=== PATIENT | male | born 1960 | race Caucasian/White ===

== ENCOUNTER 2020-07-23 15:00 | Emergency (ER) | payer OTHER, MEDICARE ==
[~2020-07-23] VITALS: Ht 182.9 cm; Wt 158.8 kg
[~2020-07-23 15:00] MED LIST: HYDACE5 PO; IBUP800 PO; META800 PO; NAPR550 PO; OXYACE5T PO; PROM25 PO
[2020-07-23 15:20] LABS: BASOPHILS ABSOLUTE AUTO 0.06 K/mm3 (0.00-0.23); BASOPHILS PERCENT AUTO 0 % (0-2); EOSINOPHILS ABSOLUTE AUTO 0.05 K/mm3 (0.00-0.68); EOSINOPHILS PERCENT AUTO 0 % (0-6); Hematocrit 41.1 % (37.0-53.0); Hemoglobin 12.7 g/dL (13.5-17.5); IMMATURE GRAN ABSOLUTE AUTO 0.15 K/mm3 (0.00-0.10); IMMATURE GRAN PERCENT AUTO 1 % (0-1); LYMPHOCYTES ABSOLUTE AUTO 2.47 K/mm3 (0.84-5.20); LYMPHOCYTES PERCENT AUTO 10 % (21-46); MONOCYTES ABSOLUTE AUTO 1.73 K/mm3 (0.16-1.47); MONOCYTES PERCENT AUTO 7 % (4-13); Mean Corpuscular HGB 29.3 pg (26.0-34.0); Mean Corpuscular HGB Conc 30.9 g/dL (31.5-36.5); Mean Corpuscular Volume 95 fL (80-100); NEUTROPHILS ABSOLUTE AUTO 21.35 K/mm3 (1.96-9.15); NEUTROPHILS PERCENT AUTO 83 % (41-73); Platelet Count 331 K/mm3 (150-400); RDW Coefficient Variation 13.3 % (11.7-14.2); RDW Standard Deviation 47.2 fL (35.1-46.3); Red Blood Cell Count 4.33 M/mm3 (4.30-5.90); White Blood Cell Count 25.81 K/mm3 (4.00-11.30)
[2020-07-23 15:45] LABS: Alanine Aminotransfer (ALT/SGP 336 U/L (12-78); Albumin, Blood 2.7 g/dL (3.4-5.0); Albumin/Globulin Ratio 0.8 (0.8-1.8); Alk Phos 93 U/L (50-136); Anion Gap 5 mmol/L (6-16); Aspartate Aminotrans (AST/SGOT 406 U/L (12-37); Bilirubin, Total 0.5 mg/dL (0.1-1.0); Blood Urea Nitrogen 18 mg/dL (8-24); Bun/Creatinine Ratio 15.7 (12.0-20.0); CO2, Blood 31 mmol/L (21-32); Calcium, Blood 7.9 mg/dL (8.5-10.1); Chloride, Blood 108 mmol/L (98-108); Creatinine, Blood 1.15 mg/dL (0.60-1.20); Ethanol (Alcohol), Blood, Med <3 mg/dL; Globulin, Blood 3.4 g/dL (2.2-4.0); Glomerular Filtration Rate >60 (60-); Glucose, Blood 134 mg/dL (70-99); Potassium, Blood 3.9 mmol/L (3.5-5.5); Sodium, Blood 144 mmol/L (136-145); Total Protein, Blood 6.1 g/dL (6.4-8.2)
== END 2020-07-23 16:20 | disposition short-term general hospital (02) ==
LOC: ER 15:00
PROVIDERS: Emergency Medicine
DX: S27.2XXA Traumatic hemopneumothorax, initial encounter (principal); S22.43XA Multiple fractures of ribs, bilateral, initial encounter for closed fracture; V57.5XXA Driver of pick-up truck or van injured in collision with fixed or stationary object in traffic accident, initial encounter; Y92.410 Unspecified street and highway as the place of occurrence of the external cause
CPT/HCPCS: 31500; 32551; 36430; 36680; 51702; 70450; 71045; 71260; 72125; 72170; 80053; 85025; 86850; 86900; 86901; 86923; 94002; 94770; 99291-25; C1751; G0480; J0330; J7030; L0160; P9016; P9059; Q9967

== ENCOUNTER → 2021-12-22 | Outpatient (CLI) | payer MEDICARE, OTHER | END | disposition home or self-care (01) | LOC: LAB 15:40 → LAB SHORT 15:40 | DX: R30.0 Dysuria (principal) | CPT/HCPCS: 87077; 87086; 87186 ==

== ENCOUNTER → 2022-02-22 | Outpatient (CLI) | payer MEDICARE, OTHER | END | disposition home or self-care (01) | LOC: LAB SHORT 16:27 → LAB 16:27 | DX: L03.116 Cellulitis of left lower limb (principal) | CPT/HCPCS: 87070; 87205 ==

== ENCOUNTER → 2022-03-07 | Outpatient (CLI) | payer MEDICARE, OTHER | END | disposition home or self-care (01) | LOC: LAB 14:15 → LAB SHORT 14:15 | DX: M86.162 Other acute osteomyelitis, left tibia and fibula (principal) | CPT/HCPCS: 87070; 87075; 87205 ==

== ENCOUNTER 2022-04-13 01:13 | Day surgery (SDC) | payer MEDICARE, OTHER | END 2022-04-13 23:08 | disposition home or self-care (01) | LOC: WOUND 01:13 | DX: T84.623A Infection and inflammatory reaction due to internal fixation device of left tibia, initial encounter (principal); L97.822 Non-pressure chronic ulcer of other part of left lower leg with fat layer exposed; Z88.0 Allergy status to penicillin; Z88.5 Allergy status to narcotic agent; Z87.891 Personal history of nicotine dependence; M06.9 Rheumatoid arthritis, unspecified; I10 Essential (primary) hypertension | CPT/HCPCS: A9270; G0463 ==

== ENCOUNTER 2022-04-25 07:40 | Day surgery (SDC) | payer MEDICARE, OTHER | END 2022-04-25 23:43 | disposition home or self-care (01) | LOC: WOUND 07:40 | DX: L97.822 Non-pressure chronic ulcer of other part of left lower leg with fat layer exposed (principal); S80.12XA Contusion of left lower leg, initial encounter; T84.623A Infection and inflammatory reaction due to internal fixation device of left tibia, initial encounter | CPT/HCPCS: A9270 ==

== ENCOUNTER 2022-05-11 14:48 | Day surgery (SDC) | payer MEDICARE, OTHER | END 2022-05-12 00:49 | disposition home or self-care (01) | LOC: WOUND 14:48 | DX: L97.822 Non-pressure chronic ulcer of other part of left lower leg with fat layer exposed (principal); S80.12XA Contusion of left lower leg, initial encounter ==

== ENCOUNTER 2022-05-14 01:50 | Day surgery (SDC) | payer MEDICARE, OTHER | END 2022-05-14 23:02 | disposition home or self-care (01) | LOC: WOUND 01:50 | DX: L97.822 Non-pressure chronic ulcer of other part of left lower leg with fat layer exposed (principal); S80.12XA Contusion of left lower leg, initial encounter ==

== ENCOUNTER 2022-05-16 02:10 | Day surgery (SDC) | payer MEDICARE, OTHER | END 2022-05-16 23:42 | disposition home or self-care (01) | LOC: WOUND 02:10 | DX: L97.822 Non-pressure chronic ulcer of other part of left lower leg with fat layer exposed (principal) ==

== ENCOUNTER → 2022-05-16 | Outpatient (CLI) | payer MEDICARE, OTHER ==
[2022-05-16 12:02] LABS: Source, Urine Clean Catch
[2022-05-16 13:28] LABS: Appearance, Urine Hazy (Clear); Bilirubin, Urine Neg (Neg); Blood, Urine 1+ (Neg); Color, Urine Yellow (P-Yellow); Glucose Qualitative, Urine Neg (Neg); Ketones, Urine Neg (Neg); Leukocyte Esterase, Urine 3+ (Neg); Nitrite, Urine Pos (Neg); Protein, Urine 1+ (Neg); Urobilinogen, Urine NORM (Normal)
[2022-05-16 13:53] LABS: Bacteria Few /hpf; Red Blood Cells, Urine 0-2 /hpf (0-2); Squamous Epithelial Cells Few /hpf (Few)
== END | disposition home or self-care (01) ==
LOC: LAB SHORT 12:00 → LAB 12:00
PROVIDERS: Student in an Organized Health Care Education/Training Program
DX: R39.11 Hesitancy of micturition (principal)
CPT/HCPCS: 81001; 87077; 87086; 87186

== ENCOUNTER 2022-05-18 02:20 | Day surgery (SDC) | payer MEDICARE, OTHER | END 2022-05-18 23:59 | disposition home or self-care (01) | LOC: WOUND | DX: L97.825 Non-pressure chronic ulcer of other part of left lower leg with muscle involvement without evidence of necrosis (principal); S80.12XA Contusion of left lower leg, initial encounter; T84.623D Infection and inflammatory reaction due to internal fixation device of left tibia, subsequent encounter | CPT/HCPCS: 87070; 87205; A9270 ==

== ENCOUNTER 2022-05-25 02:38 | Day surgery (SDC) | payer MEDICARE, OTHER | END 2022-05-25 23:41 | disposition home or self-care (01) | LOC: WOUND 02:38 | DX: L97.825 Non-pressure chronic ulcer of other part of left lower leg with muscle involvement without evidence of necrosis (principal); T84.623D Infection and inflammatory reaction due to internal fixation device of left tibia, subsequent encounter; S80.12XD Contusion of left lower leg, subsequent encounter; I10 Essential (primary) hypertension | CPT/HCPCS: A9270 ==

== ENCOUNTER 2022-05-30 02:24 | Day surgery (SDC) | payer MEDICARE, OTHER | END 2022-05-30 23:00 | disposition home or self-care (01) | LOC: WOUND 02:24 | DX: L97.822 Non-pressure chronic ulcer of other part of left lower leg with fat layer exposed (principal); T84.623D Infection and inflammatory reaction due to internal fixation device of left tibia, subsequent encounter; S80.12XD Contusion of left lower leg, subsequent encounter; W19.XXXA Unspecified fall, initial encounter | CPT/HCPCS: A9270 ==

== ENCOUNTER 2022-06-06 02:08 | Day surgery (SDC) | payer MEDICARE, OTHER | END 2022-06-06 22:54 | disposition home or self-care (01) | LOC: WOUND 02:08 | DX: L97.822 Non-pressure chronic ulcer of other part of left lower leg with fat layer exposed (principal); I87.2 Venous insufficiency (chronic) (peripheral); I10 Essential (primary) hypertension; L08.9 Local infection of the skin and subcutaneous tissue, unspecified | CPT/HCPCS: A9270 ==

== ENCOUNTER 2022-06-13 02:01 | Day surgery (SDC) | payer MEDICARE, OTHER | END 2022-06-13 23:46 | disposition home or self-care (01) | LOC: WOUND 02:01 | DX: L97.822 Non-pressure chronic ulcer of other part of left lower leg with fat layer exposed (principal); L08.9 Local infection of the skin and subcutaneous tissue, unspecified; I87.2 Venous insufficiency (chronic) (peripheral) | CPT/HCPCS: A9270; G0463 ==

== ENCOUNTER 2022-06-22 01:10 | Day surgery (SDC) | payer MEDICARE, OTHER | END 2022-06-22 23:25 | disposition home or self-care (01) | LOC: WOUND 01:10 | DX: L97.825 Non-pressure chronic ulcer of other part of left lower leg with muscle involvement without evidence of necrosis (principal); T84.623D Infection and inflammatory reaction due to internal fixation device of left tibia, subsequent encounter; S80.12XD Contusion of left lower leg, subsequent encounter; I87.2 Venous insufficiency (chronic) (peripheral); R60.0 Localized edema; I10 Essential (primary) hypertension | CPT/HCPCS: A9270; G0463 ==

== ENCOUNTER 2022-06-29 00:44 | Day surgery (SDC) | payer MEDICARE, OTHER | END 2022-06-29 22:54 | disposition home or self-care (01) | LOC: WOUND 00:44 | DX: L97.822 Non-pressure chronic ulcer of other part of left lower leg with fat layer exposed (principal); L08.9 Local infection of the skin and subcutaneous tissue, unspecified; I87.2 Venous insufficiency (chronic) (peripheral) | CPT/HCPCS: A9270; G0463 ==

== ENCOUNTER 2022-07-13 02:22 | Day surgery (SDC) | payer MEDICARE, OTHER | END 2022-07-13 23:12 | disposition home or self-care (01) | LOC: WOUND 02:22 | DX: L97.822 Non-pressure chronic ulcer of other part of left lower leg with fat layer exposed (principal); L08.9 Local infection of the skin and subcutaneous tissue, unspecified; I87.2 Venous insufficiency (chronic) (peripheral) | CPT/HCPCS: A9270; G0463 ==

== ENCOUNTER 2022-07-20 00:39 | Day surgery (SDC) | payer MEDICARE, OTHER | END 2022-07-20 23:18 | disposition home or self-care (01) | LOC: WOUND 00:39 | DX: T84.623D Infection and inflammatory reaction due to internal fixation device of left tibia, subsequent encounter (principal); I87.2 Venous insufficiency (chronic) (peripheral); L97.822 Non-pressure chronic ulcer of other part of left lower leg with fat layer exposed; S80.12XD Contusion of left lower leg, subsequent encounter; R60.0 Localized edema | CPT/HCPCS: A9270; G0463 ==

== ENCOUNTER 2022-08-03 02:05 | Day surgery (SDC) | payer MEDICARE, OTHER | END 2022-08-04 23:37 | disposition home or self-care (01) | LOC: WOUND 02:05 | DX: L97.822 Non-pressure chronic ulcer of other part of left lower leg with fat layer exposed (principal); I10 Essential (primary) hypertension; L08.9 Local infection of the skin and subcutaneous tissue, unspecified; I87.2 Venous insufficiency (chronic) (peripheral) | CPT/HCPCS: G0463 ==

== ENCOUNTER 2022-08-31 02:41 | Day surgery (SDC) | payer MEDICARE, OTHER | END 2022-08-31 23:53 | disposition home or self-care (01) | LOC: WOUND 02:41 | DX: L97.822 Non-pressure chronic ulcer of other part of left lower leg with fat layer exposed (principal); I87.2 Venous insufficiency (chronic) (peripheral) | CPT/HCPCS: G0463 ==

== ENCOUNTER 2022-09-07 01:56 | Day surgery (SDC) | payer MEDICARE, OTHER | END 2022-09-07 22:53 | disposition home or self-care (01) | LOC: WOUND 01:56 | DX: L97.822 Non-pressure chronic ulcer of other part of left lower leg with fat layer exposed (principal); S80.12XA Contusion of left lower leg, initial encounter; T84.623D Infection and inflammatory reaction due to internal fixation device of left tibia, subsequent encounter; I87.2 Venous insufficiency (chronic) (peripheral); R60.0 Localized edema | CPT/HCPCS: A9270; G0463 ==

== ENCOUNTER 2022-09-21 01:16 | Day surgery (SDC) | payer MEDICARE, OTHER | END 2022-09-22 22:50 | disposition home or self-care (01) | LOC: WOUND 01:16 | DX: T84.623A Infection and inflammatory reaction due to internal fixation device of left tibia, initial encounter (principal); I87.2 Venous insufficiency (chronic) (peripheral); L97.822 Non-pressure chronic ulcer of other part of left lower leg with fat layer exposed; S80.12XA Contusion of left lower leg, initial encounter; R60.0 Localized edema | CPT/HCPCS: G0463 ==

== ENCOUNTER → 2023-03-13 | Outpatient (CLI) | payer MEDICARE, OTHER | LOC: LAB SHORT 16:41 → LAB 16:41 | DX: R30.0 Dysuria (principal) | CPT/HCPCS: 87077; 87086; 87186 ==